=== PATIENT | male | born 1975 | race Caucasian/White ===

== ENCOUNTER 2024-08-24 13:57 | Outpatient (AMB) | payer OTHER, SELFPAY ==
[2024-08-24 14:26] VITALS: BP 154/100; PULSE 78; RESP 18; TEMP 36.8; O2SAT 92; BMI 38.0
--- NOTE | 2024-08-24 14:26 | PD.ORTHCLVIS ---
Vital signs 08/24/24 14:26 Height 1.8 m Height Method Stated Weight 123.887 kg Weight Measurement Method Standing Scale BMI 38.0 BP 154/100 H Blood Pressure Source Automatic Cuff Blood Pressure Location Left Upper Arm Position Sitting Respiration 18 Pulse 78 Pulse Source Monitor Temp 98.3 F Temp Source Temporal Artery Scan Pulse Oximetry (%) 92 L Oxygen Delivery Method Room Air Med/Allergies Allergies & Medications Allergies No Known Allergies Allergy (Verified 08/24/24 14:27) Medication Reconciliation Lisinopril/Hydrochlorothiazide * (PRINZIDE *) 1 tab PO QAM High Blood Pressure #0 tabs 01/22/14 [History Confirmed 08/24/24] hydrocodone 5 mg-acetaminophen 325 mg tablet (Nipomo) 1 tab PO .qhs #7 tabs 02/13/19 [Rx Confirmed 08/24/24] albuterol sulfate 90 mcg/actuation aerosol inhaler 2 puff inhalation Q6H PRN cough / wheezing #6.7 grams 11/27/21 [Rx Confirmed 08/24/24] inhalational spacing device (Aerochamber MV spacer) #1 ea 11/27/21 [Rx Confirmed 08/24/24] prednisone 20 mg tablet See Rx Instructions .Route .COMPLEX #8 tabs 11/27/21 [Rx Confirmed 08/24/24] promethazine-DM 6.25 mg-15 mg/5 mL oral syrup 5 ml PO Q6H PRN cough #120 mL 11/27/21 [Rx Confirmed 08/24/24] amlodipine 10 mg tablet 10 mg PO QDAY 08/24/24 [History Confirmed 08/24/24] meloxicam 7.5 mg tablet 7.5 mg PO QDAY #45 tabs 08/24/24 [Rx] metoprolol succinate 50 mg tablet,extended release 24 hr 50 mg PO QDAY 08/24/24 [History Confirmed 08/24/24] olmesartan 40 mg-hydrochlorothiazide 12.5 mg tablet 1 tab PO QDAY 08/24/24 [History Confirmed 08/24/24] Exam Exam Patient is in no acute distress and is cooperative with the examination today. Breathing is nonlabored. In no respiratory distress. Patient has no paraspinal tenderness. Spinal deformity cannot be appreciated. The gait of the patient is nonantalgic Bilateral extremities were evaluated and demonstrates sensation intact to light touch. Palpable pedal pulses are present. No significant edema is present. Bilateral knees were examined and the patient has full strength and range of motion.. The left hip was examined. Patient was able to flex to 90 degrees, adduct to 30 degrees, abduct to 40 degrees, internally rotate to 20 degrees, and externally rotate to 20 degrees. Patient has a negative logroll. Stinchfield is negative. The patient is nontender diffusely to touch. The right hip was examined. Patient was able to flex to 90 degrees, adduct to 30 degrees, abduct to 40 degrees, internally rotate to 20 degrees, and externally rotate to 20 degrees. Patient has a negative logroll. The stinchfield is negative. Assessment and Plan Problem List (1) Right hip pain: Status: Acute Plan Patient is a pleasant 48-year-old male with right hip pain. This been ongoing for many years. He had a history of a hip scope in the past. Reports the right hip has been bothering him and is warm really in the groin and side of his hip. We will get new x-rays to better evaluate this as it has been a long time. We discussed different treatment option depending on what it shows. Will start him on meloxicam Office Procedures GNS Level of Care Nursing/Assessment Patient Status: Initial/New Patient Nursing Assessment/Reassesment: Medication Reconciliation, Update PMH in EMR and Vital Signs Coordination of Care: Complex Care and Chronic Disease 1-5, Education Complex Pt/Fam, Consent,records obtained, informed consent, 1 Ins Authorization, Lab and Imaging orders, Results/Orders obtained and Staff clarify orders New Patient Charge New Patient Point Assignment: 1124 New Patient Point Charge: HEEL SHAVER Level 4 ([id number]) MA Intake Visit Data Collection New Patient or Established: New Patient (never been to [facility]) Reason for Visit:: RIGHT HIP PAIN Seen by Clinical Staff ONLY (RN/MA): No Director Of Provider Relations Required: No PCP or OBGYN visit in last 3 months: Yes Hx Now: No Do You Feel Safe at Home: Yes Authorities Contacted: N/A Questionairres Past Medical History Past Medical History Have you ever been diagnosed with any of the following: Respiratory Problems Smoking: Yes (MARIJUANA) Smoking Exposure: Yes Subjective Visit Visit for: new patient and hip Immunization / Flu Flu Vaccine in the Last 12 Months: No Flu Vaccine Exclusion Criteria: Refused by Patient History of Present Illness Chief complaint: Right hip pain Patient is a pleasant 48-year-old male with right hip pain. The pain has been ongoing for many years. He had a right hip scope [address] Segovia. The pain has progressed recently. He is very active. He works as a teacher. Personal History Occupation: TEACHER Red flag PMH: smoker Additional comments: [employer] Pain Pain level (0-10): 7 Pain duration: COMES AND GOES Pain location: outside (lateral) Pain quality: sharp, dull, aching and other (specify) (TIGHTNESS) Pain timing: increases with activity Associated signs & symptoms: none Ambulatory data Ambulatory device: none Treatments Number of previous injections: 0 Improvement with previous injections: No Improvement with PT: No Improvement with NSAIDS: no Review of Systems Review of Systems: All systems negative unless otherwise noted in HPI.
--- NOTE | 2024-08-24 14:38 | XR_ITS ---
Examination:Right hip AP, lateral, AP pelvis 3 views Technique: Hip AP lateral, AP pelvis, 3 views Exam date and time:August 24, 2024 at 1451 hours INDICATIONS: Right hip pain several years. FINDINGS: Moderate to advanced right hip osteoarthritis Moderate left hip osteoarthritis No hip or pelvic fracture IMPRESSION: Moderate to advanced right hip osteoarthritis.
== END 2024-08-24 14:44 | disposition home or self-care (01) ==
PROVIDERS: Supervising Provider Orthopaedic Surgery Adult Reconstructive Orthopaedic Surgery; Visit Provider Orthopaedic Surgery Adult Reconstructive Orthopaedic Surgery
DX: M25.551 Pain in right hip (principal)
CPT/HCPCS: 73502; 99204; G0463

== ENCOUNTER 2024-09-21 10:06 | Outpatient (AMB) | payer OTHER, SELFPAY ==
[2024-09-21 10:24] VITALS: BP 160/106; PULSE 68; RESP 19; TEMP 37; O2SAT 95; BMI 37.9
--- NOTE | 2024-09-21 10:24 | PD.ORTHCLVIS ---
Vital signs 09/21/24 10:24 Height 1.8 m Height Method Stated Weight 122.98 kg Weight Measurement Method Standing Scale BMI 37.9 BP 160/106 H Blood Pressure Source Automatic Cuff Blood Pressure Location Right Upper Arm Position Sitting Respiration 19 Pulse 68 Pulse Source Monitor Temp 98.6 F Temp Source Temporal Artery Scan Pulse Oximetry (%) 95 Oxygen Delivery Method Room Air Med/Allergies Allergies & Medications Allergies No Known Allergies Allergy (Verified 09/21/24 10:24) Medication Reconciliation Lisinopril/Hydrochlorothiazide * (PRINZIDE *) 1 tab PO QAM High Blood Pressure #0 tabs 01/22/14 [History Confirmed 09/21/24] hydrocodone 5 mg-acetaminophen 325 mg tablet ([place]ason) 1 tab PO .qhs #7 tabs 02/13/19 [Rx Confirmed 09/21/24] albuterol sulfate 90 mcg/actuation aerosol inhaler 2 puff inhalation Q6H PRN cough / wheezing #6.7 grams 11/27/21 [Rx Confirmed 09/21/24] inhalational spacing device (Aerochamber MV spacer) #1 ea 11/27/21 [Rx Confirmed 09/21/24] prednisone 20 mg tablet See Rx Instructions .Route .COMPLEX #8 tabs 11/27/21 [Rx Confirmed 09/21/24] promethazine-DM 6.25 mg-15 mg/5 mL oral syrup 5 ml PO Q6H PRN cough #120 mL 11/27/21 [Rx Confirmed 09/21/24] amlodipine 10 mg tablet 10 mg PO QDAY 08/24/24 [History Confirmed 09/21/24] meloxicam 7.5 mg tablet 7.5 mg PO QDAY #45 tabs 08/24/24 [Rx Confirmed 09/21/24] metoprolol succinate 50 mg tablet,extended release 24 hr 50 mg PO QDAY 08/24/24 [History Confirmed 09/21/24] olmesartan 40 mg-hydrochlorothiazide 12.5 mg tablet 1 tab PO QDAY 08/24/24 [History Confirmed 09/21/24] Exam Exam Patient is in no acute distress and is cooperative with the examination today. Breathing is nonlabored. In no respiratory distress. Patient has no paraspinal tenderness. Spinal deformity cannot be appreciated. The gait of the patient is nonantalgic Bilateral extremities were evaluated and demonstrates sensation intact to light touch. Palpable pedal pulses are present. No significant edema is present. Bilateral knees were examined and the patient has full strength and range of motion.. The left hip was examined. Patient was able to flex to 90 degrees, adduct to 30 degrees, abduct to 40 degrees, internally rotate to 20 degrees, and externally rotate to 20 degrees. Patient has a negative logroll. Stinchfield is negative. The patient is nontender diffusely to touch. The right hip was examined. Patient was able to flex to 90 degrees, adduct to 30 degrees, abduct to 40 degrees, internally rotate to 20 degrees, and externally rotate to 20 degrees. Patient has a negative logroll. The stinchfield is negative. 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 There is moderate arthritis as well and joint space narrowing Assessment and Plan Problem List (1) Right hip pain: Status: Acute Plan Patient is a pleasant 48-year-old male with right hip pain. This been ongoing for many years. He had a history of a hip scope in the past. Reports the right hip has been bothering him and is warm really in the groin and side of his hip. Since we last saw him, he reports the pain is really improved. We discussed with him the natural history of arthritis. He will start with meloxicam for now and we discussed a cortisone injection should the pain worsen Office Procedures GNS Level of Care Nursing/Assessment Patient Status: Established Patient Nursing Assessment/Reassesment: Medication Reconciliation, Update PMH in EMR and Vital Signs Coordination of Care: Complex Care and Chronic Disease 1-5, Education Complex Pt/Fam, Consent,records obtained, informed consent, Results/Orders obtained and Staff clarify orders Established Patient Charge Established Patient Point Assignment: 95 Established Patient Point Charge: EP Level 3 (80-115) MA Intake Visit Data Collection New Patient or Established: Established Patient (seen at [facility] within 3 years) Reason for Visit:: F/U XRAYS Seen by Clinical Staff ONLY (RN/MA): No Verbal consent obtained for Telemed visit?: No Market Research Senior Project Manager Required: No PCP or OBGYN visit in last 3 months: Yes Hx Now: No Do You Feel Safe at Home: Yes Authorities Contacted: N/A Questionairres Past Medical History Past Medical History Have you ever been diagnosed with any of the following: Respiratory Problems Smoking: Yes (MARIJUANA) Smoking Exposure: Yes Subjective Visit Visit for: follow up visit and x-rays Immunization / Flu Flu Vaccine in the Last 12 Months: No Flu Vaccine Exclusion Criteria: No Exclusion Criteria History of Present Illness Chief complaint: F/U XRAYS Patient is a pleasant 48-year-old male with right hip pain. The pain has been ongoing for many years. He had a right hip scope [address] Segovia. The pain has progressed recently. 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
== END 2024-09-21 10:42 | disposition home or self-care (01) ==
LOC: HODSRG 10:06
PROVIDERS: Supervising Provider Orthopaedic Surgery Adult Reconstructive Orthopaedic Surgery; Visit Provider Orthopaedic Surgery Adult Reconstructive Orthopaedic Surgery
DX: M25.551 Pain in right hip (principal)
CPT/HCPCS: 99213; G0463